=== PATIENT | female | born 1990 | race Caucasian/White ===

== ENCOUNTER → 2017-09-13 10:38 | Outpatient (CLI) | payer OTHER, MEDICAID, SELFPAY ==
[2017-09-13 12:42] LABS: HEMOLYSIS < 15 (0-50); Iron 102 ug/dL (37-170)
[2017-09-13 12:53] LABS: Percent Iron Saturation 27 % (15-50); Total Iron Binding Capacity 377 ug/dL (265-497); Transferrin 300 mg/dL (206-381)
[2017-09-13 13:12] LABS: TSH w/ Reflex to FT4 1.73 uIU/mL (0.47-4.68)
[2017-09-13 13:20] LABS: Ferritin 23.3 ng/mL (6.27-137)
== END ==
PROVIDERS: PCP Family Medicine; Visit Provider Family Medicine
DX: L65.9 Nonscarring hair loss, unspecified (principal)
CPT/HCPCS: 36415; 82728; 83540; 83550; 84443